=== PATIENT | male | born 1935 | race Native Hawaiian/Other Pacific Islander ===

== ENCOUNTER 2020-08-15 10:31 | Outpatient (CLI) | payer BC, OTHER | END 2020-08-15 19:38 | disposition home or self-care (01) | LOC: INF 10:31 | PROVIDERS: ATTEND Internal Medicine | DX: Z23 Encounter for immunization (principal) ==

== ENCOUNTER 2020-09-12 07:32 | Outpatient (CLI) | payer BC, OTHER | END 2020-09-12 19:18 | disposition home or self-care (01) | LOC: INF 07:32 | PROVIDERS: ATTEND Internal Medicine | DX: Z23 Encounter for immunization (principal) | CPT/HCPCS: 96372 ==